=== PATIENT | female | born 1945 | race African-American/Black ===

== ENCOUNTER 2021-07-04 09:17 | Inpatient (IN) | payer MEDICARE ==
[~2021-07-04] VITALS: Ht 177.8 cm; Wt 79.9 kg
[~2021-07-04 09:17] MED LIST: ALLO300T PO; ASPI-630 PO; ATOR10TA60 PO; ENOX40DI SQ; FURO-68 PO; INDO50CA15 PO; LABE200T4 PO; LISI-130 PO; POTA10TA12 PO
--- NOTE | 2021-07-04 09:33 | PHYS DOC ---
Past Medical History Past Medical History: Asthma, CHF, Constipation, CVA, Diabetes-Type II, Heart Disease, Hypertension, Stroke Additional Past Medical Histor: gout Past Surgical History: Hysterectomy (w/ oophrectomy) Additional Past Surgical Histo: breast biopsy Smoking Status: Former Smoker Drug Use: None General Adult EDM: Chief Complaint: SYNCOPE HPI: HPI: Patient is a 76 year old female with past medical history of CHF, asthma, CAD, gout and prior CVA who presents with syncopal episode at home. Patient states she was walking from the bedroom to the bathroom when she lost consciousness. Her caught her, so she did not fall to the ground or suffer any head or neck trauma. Patient reports 2-week history of lightheadedness, decreased appetite, nausea and constipation. She also states she has had a dry cough for approximately 1 week. She denies chest pain, palpitations, shortness of breath, sputum production, abdominal pain, vomiting, passing flatulence, headache, paresthesias, focal weakness or any other pain. Per EMS, patient was hypotensive in route with improvement status post 550 mL LR administration. Patient reports she has had issues with chronic constipation and has had multiple colonoscopies without findings. Her most recent colonoscopy was in summer 2020. Patient is vaccinated against COVID-19, and received her last shot in September 2020. Review of Systems: Review of Systems: Constitutional: Denies fever, chills or generalized weakness Eyes: Denies change in visual acuity, visual field deficits or discharge HENT: Denies ear pain, nasal congestion or sore throat Respiratory: See HPI Cardiovascular: Denies chest pain, palpitations or edema GI: See HPI : Denies dysuria or hematuria Musculoskeletal: Denies back pain or joint pain Integument: Denies rash or other skin lesion Neurologic: See HPI Heart Score: C/O Chest Pain: No Allergies: Allergies: Allergies Coded Allergies Type Severity Reaction Last Updated Verified No Known Drug Allergies 06/01/21 No Physical Exam: PE: Constitutional: Well developed, well nourished, no acute distress, chronically ill-appearing. HENT: Normocephalic, atraumatic, bilateral external ears normal, nose normal. Eyes: PERRLA, EOMI, conjunctiva normal, no discharge. Neck: Normal range of motion, no step-off, no tenderness, supple, no stridor. Cardiovascular: Heart rate regular rhythm, no obvious murmur. Lungs & Thorax: Bilateral breath sounds expiratory wheezing, diminished breath sounds in bases. Abdomen: Bowel sounds hyperactive, soft, no tenderness, no masses, no pulsatile masses. Rectal: No external hemorrhoids or gross blood appreciated. Rectal tone intact. No palpable hemorrhoids, masses or fecal impaction. Skin: Warm, dry, no erythema, no rash. Extremities: No tenderness, no cyanosis, no clubbing, ROM intact, no edema. Neurologic: Alert and oriented x4, no focal deficits noted. Current Patient Data: Labs: Laboratory Tests Test 07/04/21 09:39 07/04/21 10:48 07/04/21 12:30 White Blood Count 4.4 x10^3/uL (4.0-11.0) Red Blood Count 4.72 x10^6/uL (3.50-5.40) Hemoglobin 13.7 g/dL (12.0-15.5) Hematocrit 42.9 % (36.0-47.0) Mean Corpuscular Volume 91 fL (79-100) Mean Corpuscular Hemoglobin 29 pg (25-35) Mean Corpuscular Hemoglobin Concent 32 g/dL (31-37) Red Cell Distribution Width 15.8 % (11.5-14.5) Platelet Count 191 x10^3/uL (140-400) Neutrophils (%) (Auto) 74 % (31-73) Lymphocytes (%) (Auto) 18 % (24-48) Monocytes (%) (Auto) 6 % (0-9) Eosinophils (%) (Auto) 1 % (0-3) Basophils (%) (Auto) 1 % (0-3) Neutrophils # (Auto) 3.3 x10^3/uL (1.8-7.7) Lymphocytes # (Auto) 0.8 x10^3/uL (1.0-4.8) Monocytes # (Auto) 0.3 x10^3/uL (0.0-1.1) Eosinophils # (Auto) 0.0 x10^3/uL (0.0-0.7) Basophils # (Auto) 0.0 x10^3/uL (0.0-0.2) Troponin I High Sensitivity 74 ng/L (4-50) Sodium Level 138 mmol/L (136-145) Potassium Level 4.0 mmol/L (3.5-5.1) Chloride Level 103 mmol/L (98-107) Carbon Dioxide Level 20 mmol/L (21-32) Anion Gap 15 (6-14) Blood Urea Nitrogen 25 mg/dL (7-20) Creatinine 2.0 mg/dL (0.6-1.0) Estimated GFR (Cockcroft-Gault) 29.4 BUN/Creatinine Ratio 13 (6-20) Glucose Level 142 mg/dL (70-99) Calcium Level 8.3 mg/dL (8.5-10.1) Magnesium Level 2.2 mg/dL (1.8-2.4) Total Bilirubin 0.7 mg/dL (0.2-1.0) Aspartate Amino Transf (AST/SGOT) 44 U/L (15-37) Alanine Aminotransferase (ALT/SGPT) 39 U/L (14-59) Alkaline Phosphatase 71 U/L (46-116) WL-Nef-M-Type Natriuretic Peptide 3745 pg/mL (0-449) Total Protein 6.8 g/dL (6.4-8.2) Albumin 3.0 g/dL (3.4-5.0) Albumin/Globulin Ratio 0.8 (1.0-1.7) Urine Collection Type Unknown Urine Color [place] Urine Clarity Turbid Urine pH 5.5 (<5.0-8.0) Urine Specific [place] 1.025 (1.000-1.030) Urine Protein 100 mg/dL (NEG-TRACE) Urine Glucose (UA) Negative mg/dL (NEG) Urine Ketones (Stick) Trace mg/dL (NEG) Urine Blood Negative (NEG) Urine Nitrite Negative (NEG) Urine Bilirubin Large (NEG) Urine Urobilinogen Dipstick 1.0 mg/dL (0.2 mg/dL) Urine Leukocyte Esterase Small (NEG) Urine RBC 0 /HPF (0-2) Urine WBC 11-20 /HPF (0-4) Urine Squamous Epithelial Cells Many /LPF Urine Bacteria Few /HPF (0-FEW) Urine Hyaline Casts Occasional /HPF Urine Mucus Slight /LPF Vital Signs: Vital Signs Date Time Temp Pulse Resp B/P (MAP) Pulse Ox O2 Delivery O2 Flow Rate FiO2 07/04/21 09:17 96.2 69 16 103/59 (74) 100 Room Air 96.2 EKG: EKG: EKG Interpreted by Dr. Gonsalez at 0933: Regular rate and rhythm 65 bpm with no ectopic beats. Left axis deviation, LVH, left bundle branch block, incomplete right bundle branch block. QT 504 ms/QTc 531 ms. No STEMI. Radiology/Procedures: Radiology/Procedures: PROCEDURE: CT HEAD WO CONTRAST EXAM: Head CT without contrast. HISTORY: Syncope. TECHNIQUE: Computed tomographic images of the head were obtained without contrast. *One or more of the following individualized dose reduction techniques were utilized for this examination: 1. Automated exposure control. 2. Adjustment of the mA and/or kV according to patient size. 3. Use of iterative reconstruction technique. COMPARISON: None. FINDINGS: There is no acute or subacute extra-axial or intraparenchymal hemorrhage. There is no mass effect or midline shift. There is no hydrocephalus. There are multiple scattered ill-defined areas of hypodensity throughout the cerebral white matter, most commonly due to chronic small vessel disease in patients of this age. There is a suspected small chronic infarct within the right basal ganglia. There is paranasal sinus mucosal thickening. The mastoid air cells are clear. There is no suspicious calvarial lesion. IMPRESSION: 1. No acute intracranial finding. Note is made that MRI is more sensitive for acute infarction. 2. Extensive bilateral cerebral white matter changes, most commonly due to chronic small vessel disease in patients of this age. There may also be a chronic infarct within the right basal ganglia. These findings can be better a ssessed with MRI. Electronically signed by: Erum Hackett MD (07/04/2021 11:31 AM) [facility] PROCEDURE: CHEST AP ONLY EXAM: Chest, single view. HISTORY: Syncope. COMPARISON: None. FINDINGS: A frontal view of the chest is obtained. There is left lower lobe predominant diffuse interstitial infiltrate. There is no consolidation, pleural effusion or pneumothorax. There is a prominent cardiac silhouette. IMPRESSION: Left lower lobe predominant diffuse interstitial infiltrate. This may be superimposed on chronic interstitial changes. Electronically signed by: Erum Hackett MD (07/04/2021 9:48 AM) [facility] PROCEDURE: CT ABDOMEN PELVIS WO CONTRAST EXAM: Abdomen and pelvis CT without intravenous contrast. HISTORY: Constipation. TECHNIQUE: Computed tomographic images of the abdomen and pelvis were obtained without contrast. Multiplanar reformatting was performed. *One or more of the following individualized dose reduction techniques were utilized for this examination: 1. Automated exposure control. 2. Adjustment of the mA and/or kV according to patient size. 3. Use of iterative reconstruction technique. COMPARISON: None. FINDINGS: Evaluation of the lower thorax demonstrates mild cardiomegaly. There is a small pericardial effusion. There is a small hiatal hernia. There is multifocal groundglass infiltrate throughout both lungs. There is emphysema and there are chronic interstitial changes. There is no consolidation or pleural effusion. There is a 5 mm hypodense lesion within the left hepatic lobe, too small to characterize. There is a lobulated cyst within the right hepatic lobe measuring 3.0 cm. There are few additional suspected tiny cyst within the right hepatic lobe. The gallbladder, pancreas, spleen and adrenal glands are unremarkable. There is a small simple cyst within the upper pole the right kidney. Follow-up is not routinely performed for simple cysts. There is no suspicious renal lesion on this noncontrast exam. There is no nephroureterolithiasis. There is no appendicitis. There is no bowel obstruction. There is distal colonic diverticulosis. There is no diverticulitis. The bladder is unremarkable. There is aortic and aortic branch vessel atherosclerosis. There is no aneurysm. There is no lymphadenopathy. There are degenerative changes throughout the spine, predominantly at L5-S1. IMPRESSION: 1. Colonic diverticulosis without diverticulitis. 2. Groundglass infiltrate throughout the bilateral lower thorax likely due to atypical pneumonia. 3. Multiple hypodense lesions within the liver, the largest of which demonstrate attenuation consistent with a cyst. In the absence of known malignancy, the additional lesions are also likely cysts. 4. Small simple cyst within the right kidney. Electronically signed by: Erum Hackett MD (07/04/2021 11:40 AM) [facility] Course & Med Decision Making: Course & Med Decision Making Pertinent Labs and Imaging studies reviewed. (See chart for details) 76 year old female presents with witnessed syncopal episode at home while walking from bedroom to her bathroom. Patient did not fall to the ground or experience head/neck trauma of any kind, as her caught her before she fell. Pressures soft en route, per EMS. She responded well to 1/2L LR bolus administered. Additional complaints of lightheadedness and constipation x2 weeks, cough x1 week. Workup will include labs, urinalysis, CXR, CT head/abd/pelv, EKG, swabs for COVID-19. Albuterol inhaler provided for diffuse wheezing. More IV fluids administered. Findings today include atypical pneumonia, elevated troponin and elevated BNP. Dr. Harris (hospitalist) contacted for admission, who gladly accepts. Included cardiology consult on bridge orders per Dr. Harris request. Dragon Disclaimer: Dragon Disclaimer: This electronic medical record was generated, in whole or in part, using a voice recognition dictation system. Departure Departure Impression: Primary Impression: Syncope Qualified Codes: R55 - Syncope and collapse Additional Impressions: Atypical pneumonia Elevated troponin level not due myocardial infarction Hx of severe congestive heart failure COVID-19 virus infection Disposition: ADMITTED INPATIENT Admitting Physician: MARCE (Steven) Condition: GUARDED Referrals: ERNESTO CHIN (PCP) RENITA WINTER Jul 04, 2021 09:33
[2021-07-04] MEDS ORDERED: IV NORMAL SALINE 1000ML BAG 1,000 ML IV ONE (09:45)
[2021-07-04 09:51] LABS: BASO % 1 % (0-3); EOS % 1 % (0-3); HEMATOCRIT 42.9 % (36.0-47.0); HEMOGLOBIN 13.7 g/dL (12.0-15.5); LYMPH # 0.8 x10^3/uL (1.0-4.8); LYMPH % 18 % (24-48); MEAN CORPUSCULAR HEMOGLOBIN 29 pg (25-35); MEAN CORPUSCULAR HGB CONC 32 g/dL (31-37); MEAN CORPUSCULAR VOLUME 91 fL (79-100); MONO # 0.3 x10^3/uL (0.0-1.1); MONO % 6 % (0-9); NEUT # 3.3 x10^3/uL (1.8-7.7); NEUT % 74 % (31-73); PLATELET COUNT 191 x10^3/uL (140-400); RED BLOOD COUNT 4.72 x10^6/uL (3.50-5.40); RED CELL DISTRIBUTION WIDTH 15.8 % (11.5-14.5); WHITE BLOOD COUNT 4.4 x10^3/uL (4.0-11.0)
--- NOTE | 2021-07-04 09:51 | RAD ---
EXAM: Chest, single view. HISTORY: Syncope. COMPARISON: None. FINDINGS: A frontal view of the chest is obtained. There is left lower lobe predominant diffuse inter stitial infiltrate. There is no consolidation, pleural effusion or pneumothorax. There is a prominent cardiac silhouette. IMPRESSION: Left lower lobe predominant diffuse interstitial infiltrate. This may be superimposed on chronic interstitial changes. Electronically signed by: Erum Hackett MD (07/04/2021 9:48 AM) [facility]
[2021-07-04] MEDS ORDERED: CONTRAST GIVEN. MC PRN (10:00)
[2021-07-04] MEDS ORDERED: IOHEXOL 300 MG/ML 100ML VIAL. IV ONE (10:00)
[2021-07-04] MEDS ORDERED: ALBUTEROL SULFATE 8GM INHALER. INH PRN (11:00)
[2021-07-04 11:13] LABS: CALCIUM 8.3 mg/dL (8.5-10.1); GFR 29.4
[2021-07-04 11:17] LABS: ALBUMIN/GLOBULIN RATIO 0.8 (1.0-1.7); MAGNESIUM 2.2 mg/dL (1.8-2.4); TOTAL BILIRUBIN 0.7 mg/dL (0.2-1.0); TOTAL PROTEIN 6.8 g/dL (6.4-8.2)
--- NOTE | 2021-07-04 11:34 | RAD ---
EXAM: Head CT without contrast. HISTORY: Syncope. TECHNIQUE: Computed tomographic images of the head were obtained without contrast. *One or more of the following individualized dose reduction techniques were utilized for this examina tion: 1. Automated exposure control. 2. Adjustment of the mA and/or kV according to patient size. 3. Use of iterative reconstruction technique. COMPARISON: None. FINDINGS: There is no acute or subacute extra-axial or intraparenchymal hemorrhage. There is no mass effect or midline shift. There is no hydrocephalus. There are multiple scattered ill-defined areas of hypodensity throughout the cerebral white matter, m ost commonly due to chronic small vessel disease in patients of this age. There is a suspected small chronic infarct within the right basal ganglia. There is paranasal sinus mucosal thickening. The mastoid air cells are clear. There is no suspicious calvarial lesion. IMPRESSION: 1. No acute intracranial finding. Note is made that MRI is more sensitive for acute infarction. 2. Extensive bilateral cerebral white matter changes, most commonly due to chronic small vessel disea se in patients of this age. There may also be a chronic infarct within the right basal ganglia. These findings can be better assessed with MRI. Electronically signed by: Erum Hackett MD (07/04/2021 11:31 AM) [facility]
--- NOTE | 2021-07-04 11:43 | RAD ---
EXAM: Abdomen and pelvis CT without intravenous contrast. HISTORY: Constipation. TECHNIQUE: Computed tomographic images of the abdomen and pelvis were obtained without contrast. Mult iplanar reformatting was performed. *One or more of the following individualized dose reduction techniques were utilized for this examina tion: 1. Automated exposure control. 2. Adjustment of the mA and/or kV according to patient size. 3. Use of iterative reconstruction technique. COMPARISON: None. FINDINGS: Evaluation of the lower thorax demonstrates mild cardiomegaly. There is a small pericardial effusion. There is a small hiatal hernia. There is multifocal groundglass infiltrate throughout both lungs. There is emphysema and there are chronic interstitial changes. There is no consolidation or p leural effusion. There is a 5 mm hypodense lesion within the left hepatic lobe, too small to characterize. There is a lobulated cyst within the right hepatic lobe measuring 3.0 cm. There are few additional suspected tin y cyst within the right hepatic lobe. The gallbladder, pancreas, spleen and adrenal glands are unrema rkable. There is a small simple cyst within the upper pole the right kidney. Follow-up is not routine ly performed for simple cysts. There is no suspicious renal lesion on this noncontrast exam. There is no nephroureterolithiasis. There is no appendicitis. There is no bowel obstruction. There is distal colonic diverticulosis. Ther e is no diverticulitis. The bladder is unremarkable. There is aortic and aortic branch vessel atheros clerosis. There is no aneurysm. There is no lymphadenopathy. There are degenerative changes throughou t the spine, predominantly at L5-S1. IMPRESSION: 1. Colonic diverticulosis without diverticulitis. 2. Groundglass infiltrate throughout the bilateral lower thorax likely due to atypical pneumonia. 3. Multiple hypodense lesions within the liver, the largest of which demonstrate attenuation consiste nt with a cyst. In the absence of known malignancy, the additional lesions are also likely cysts. 4. Small simple cyst within the right kidney. Electronically signed by: Erum Hackett MD (07/04/2021 11:40 AM) [facility]
[2021-07-04 12:39] LABS: BILIRUBIN,URINE LARGE (NEG); CLARITY,URINE TURBID; COLOR,URINE ORANGE; NITRITE,URINE NEGATIVE (NEG); PH,URINE 5.5 (<5.0-8.0); PROTEIN,URINE 100 mg/dL (NEG-TRACE)
[2021-07-04 12:44] LABS: HYALINE CASTS, URINE OCCASIONAL /HPF
[2021-07-04 12:45] LABS: BACTERIA,URINE FEW /HPF (0-FEW); RBC,URINE 0 /HPF (0-2)
--- NOTE | 2021-07-04 13:17 | PDOC1 ---
History and Physical Date of Service: DOS: DATE: 07/04/21 TIME: 13:03 Chief Complaint: Chief Complain: syncope History of Present Illness: HPI: 76-year-old female with past medical history of CHF seen on cardiac cath in May 2021, asthma, gout, history of CVA who comes in after a syncopal episode at home. Patient states that she was went to the bathroom and attempted to have a bowel movement. When she got up she had to grab onto her because she was about to fall. Denies any L loss of consciousness or head tr auma. Patient states that she is having a 1 week history of constipation and has been lightheaded and having decreased appetite. This is her chronic issue. She also endorses a cough for approximately 1 week. Denies chest pain, palpitations, shortness of breath, nausea or vomiting, dysuria or diarrhea. Patient is vaccinated for COVID-19. Upon arrival to the ED patient was hypo tensive and had 550 cc of LR and had improvement. Past Medical/Surgical History: PMH/PSH: Past medical history: Diabetes mellitus type 2, hypertension, gout, asthma Past surgical history: Hysterectomy in Allergies: Allergies: Coded Allergies: No Known Drug Allergies (Unverified , 06/01/21) Family History: Family History: Reviewed with no relevant findings in the chart Social History: Social History: Former smoker Current Medications: Current Medications Current Medications Sodium Chloride 1,000 ml @ 1,000 mls/hr 1X ONCE IV Last administered on 07/04/21at 10:09; Start 07/04/21 at 09:45; Stop 07/04/21 at 10:44; Status DC Iohexol (Omnipaque 300 Mg/ml) 75 ml 1X ONCE IV ; Start 07/04/21 at 10:00; Stop 07/04/21 at 10:01; Status DC Info (CONTRAST GIVEN -- Rx MONITORING) 1 each PRN DAILY PRN MC SEE COMMENTS; Start 07/04/21 at 10:00; Stop 07/06/21 at 09:59 Albuterol Sulfate (Ventolin Hfa) 1 puff PRN Q4HRS PRN INH SHORTNESS OF BREATH; Start 07/04/21 at 11:00 Active Scripts Active Lisinopril 40 Mg Tablet 40 Mg PO DAILY 30 Days Aspirin 81 Mg Tab.chew 1 Tab PO DAILY 30 Days Labetalol Hcl 200 Mg Tablet 1 Tab PO BID 30 Days Atorvastatin Calcium 10 Mg Tablet 10 Mg PO HS 30 Days Reported Lasix (Furosemide) 40 Mg Tablet 1 Tab PO DAILY 30 Days Klor-Con 10 (Potassium Chloride) 10 Meq Tablet.er 1 Tab PO DAILY 30 Days Indomethacin 50 Mg Capsule 50 Mg PO BIDAFTMEAL PRN PRN Allopurinol 300 Mg Tablet 300 Mg PO DAILY ROS: Review of Systems Review of System REVIEW OF SYSTEMS: GENERAL: Denies weakness SKIN: No bruising, hair changes or rashes. EYES: No blurred, double or loss of vision. NOSE AND THROAT: No history of nosebleeds, hoarseness or sore throat. HEART: No history of palpitations, chest pain or shortness of breath on exertion. LUNGS: Positive for cough GASTROINTESTINAL: Positive for constipation GENITOURINARY: No history of frequency, urgency, hesitancy or nocturia. NEUROLOGIC: Denies history of numbness, tingling, or tremor. PSYCHIATRIC: No history of panic, anxiety or depression. ENDOCRINE: No history of heat or cold intolerance, polyuria or polydipsia. EXTREMITIES: Denies joint pain, pain on walking or stiffness. Physical Exam: Vital Signs: Vital Signs Date Time Temp Pulse Resp B/P (MAP) Pulse Ox O2 Delivery O2 Flow Rate FiO2 07/04/21 09:17 96.2 69 16 103/59 (74) 100 Room Air 96.2 Physcial Exam: General: Well developed, well nourished, no acute distress, well appearing HEENT: Pupils equally round and reactive to light, EOMI, no discharge, normal conjunctiva Neck: Supple, no nuchal rigidity, no JVD, trachea midline, no tenderness Cardiac: RRR, no murmurs, no gallops, no rubs Chest/Lungs: CTAB, no wheeze, no rhonchi, no crackles Abdomen: soft, non-distended, no guarding, no peritoneal signs, non-tender Back: No tenderness Extremities: no edema, pulses intact, non-tender,capillary refill <3 sec bilateral upper and lower extremities, Neuro: Alert and oriented x 4, no focal deficits, normal speech Labs: Labs: Laboratory Tests Test 07/04/21 09:39 07/04/21 10:48 07/04/21 12:30 White Blood Count 4.4 x10^3/uL (4.0-11.0) Red Blood Count 4.72 x10^6/uL (3.50-5.40) Hemoglobin 13.7 g/dL (12.0-15.5) Hematocrit 42.9 % (36.0-47.0) Mean Corpuscular Volume 91 fL (79-100) Mean Corpuscular Hemoglobin 29 pg (25-35) Mean Corpuscular Hemoglobin Concent 32 g/dL (31-37) Red Cell Distribution Width 15.8 % (11.5-14.5) Platelet Count 191 x10^3/uL (140-400) Neutrophils (%) (Auto) 74 % (31-73) Lymphocytes (%) (Auto) 18 % (24-48) Monocytes (%) (Auto) 6 % (0-9) Eosinophils (%) (Auto) 1 % (0-3) Basophils (%) (Auto) 1 % (0-3) Neutrophils # (Auto) 3.3 x10^3/uL (1.8-7.7) Lymphocytes # (Auto) 0.8 x10^3/uL (1.0-4.8) Monocytes # (Auto) 0.3 x10^3/uL (0.0-1.1) Eosinophils # (Auto) 0.0 x10^3/uL (0.0-0.7) Basophils # (Auto) 0.0 x10^3/uL (0.0-0.2) Troponin I High Sensitivity 74 ng/L (4-50) Sodium Level 138 mmol/L (136-145) Potassium Level 4.0 mmol/L (3.5-5.1) Chloride Level 103 mmol/L (98-107) Carbon Dioxide Level 20 mmol/L (21-32) Anion Gap 15 (6-14) Blood Urea Nitrogen 25 mg/dL (7-20) Creatinine 2.0 mg/dL (0.6-1.0) Estimated GFR (Cockcroft-Gault) 29.4 BUN/Creatinine Ratio 13 (6-20) Glucose Level 142 mg/dL (70-99) Calcium Level 8.3 mg/dL (8.5-10.1) Magnesium Level 2.2 mg/dL (1.8-2.4) Total Bilirubin 0.7 mg/dL (0.2-1.0) Aspartate Amino Transf (AST/SGOT) 44 U/L (15-37) Alanine Aminotransferase (ALT/SGPT) 39 U/L (14-59) Alkaline Phosphatase 71 U/L (46-116) UU-Djb-X-Type Natriuretic Peptide 3745 pg/mL (0-449) Total Protein 6.8 g/dL (6.4-8.2) Albumin 3.0 g/dL (3.4-5.0) Albumin/Globulin Ratio 0.8 (1.0-1.7) Urine Collection Type Unknown Urine Color [place] Urine Clarity Turbid Urine pH 5.5 (<5.0-8.0) Urine Specific [place] 1.025 (1.000-1.030) Urine Protein 100 mg/dL (NEG-TRACE) Urine Glucose (UA) Negative mg/dL (NEG) Urine Ketones (Stick) Trace mg/dL (NEG) Urine Blood Negative (NEG) Urine Nitrite Negative (NEG) Urine Bilirubin Large (NEG) Urine Urobilinogen Dipstick 1.0 mg/dL (0.2 mg/dL) Urine Leukocyte Esterase Small (NEG) Urine RBC 0 /HPF (0-2) Urine WBC 11-20 /HPF (0-4) Urine Squamous Epithelial Cells Many /LPF Urine Bacteria Few /HPF (0-FEW) Urine Hyaline Casts Occasional /HPF Urine Mucus Slight /LPF Laboratory Tests Test 07/04/21 09:39 07/04/21 10:48 07/04/21 12:30 White Blood Count 4.4 x10^3/uL (4.0-11.0) Red Blood Count 4.72 x10^6/uL (3.50-5.40) Hemoglobin 13.7 g/dL (12.0-15.5) Hematocrit 42.9 % (36.0-47.0) Mean Corpuscular Volume 91 fL (79-100) Mean Corpuscular Hemoglobin 29 pg (25-35) Mean Corpuscular Hemoglobin Concent 32 g/dL (31-37) Red Cell Distribution Width 15.8 % (11.5-14.5) Platelet Count 191 x10^3/uL (140-400) Neutrophils (%) (Auto) 74 % (31-73) Lymphocytes (%) (Auto) 18 % (24-48) Monocytes (%) (Auto) 6 % (0-9) Eosinophils (%) (Auto) 1 % (0-3) Basophils (%) (Auto) 1 % (0-3) Neutrophils # (Auto) 3.3 x10^3/uL (1.8-7.7) Lymphocytes # (Auto) 0.8 x10^3/uL (1.0-4.8) Monocytes # (Auto) 0.3 x10^3/uL (0.0-1.1) Eosinophils # (Auto) 0.0 x10^3/uL (0.0-0.7) Basophils # (Auto) 0.0 x10^3/uL (0.0-0.2) Troponin I High Sensitivity 74 ng/L (4-50) Sodium Level 138 mmol/L (136-145) Potassium Level 4.0 mmol/L (3.5-5.1) Chloride Level 103 mmol/L (98-107) Carbon Dioxide Level 20 mmol/L (21-32) Anion Gap 15 (6-14) Blood Urea Nitrogen 25 mg/dL (7-20) Creatinine 2.0 mg/dL (0.6-1.0) Estimated GFR (Cockcroft-Gault) 29.4 BUN/Creatinine Ratio 13 (6-20) Glucose Level 142 mg/dL (70-99) Calcium Level 8.3 mg/dL (8.5-10.1) Magnesium Level 2.2 mg/dL (1.8-2.4) Total Bilirubin 0.7 mg/dL (0.2-1.0) Aspartate Amino Transf (AST/SGOT) 44 U/L (15-37) Alanine Aminotransferase (ALT/SGPT) 39 U/L (14-59) Alkaline Phosphatase 71 U/L (46-116) BK-Vnl-T-Type Natriuretic Peptide 3745 pg/mL (0-449) Total Protein 6.8 g/dL (6.4-8.2) Albumin 3.0 g/dL (3.4-5.0) Albumin/Globulin Ratio 0.8 (1.0-1.7) Urine Collection Type Unknown Urine Color [place] Urine Clarity Turbid Urine pH 5.5 (<5.0-8.0) Urine Specific Dickinson 1.025 (1.000-1.030) Urine Protein 100 mg/dL (NEG-TRACE) Urine Glucose (UA) Negative mg/dL (NEG) Urine Ketones (Stick) Trace mg/dL (NEG) Urine Blood Negative (NEG) Urine Nitrite Negative (NEG) Urine Bilirubin Large (NEG) Urine Urobilinogen Dipstick 1.0 mg/dL (0.2 mg/dL) Urine Leukocyte Esterase Small (NEG) Urine RBC 0 /HPF (0-2) Urine WBC 11-20 /HPF (0-4) Urine Squamous Epithelial Cells Many /LPF Urine Bacteria Few /HPF (0-FEW) Urine Hyaline Casts Occasional /HPF Urine Mucus Slight /LPF Images: Images PROCEDURE: CHEST AP ONLY IMPRESSION: Left lower lobe predominant diffuse interstitial infiltrate. This may be superimposed on chronic interstitial changes. PROCEDURE: CT HEAD WO CONTRAST EXAM: Head CT without contrast. HISTORY: Syncope. TECHNIQUE: Computed tomographic images of the head were obtained without contrast. *One or more of the following individualized dose reduction techniques were utilized for this examination: 1. Automated exposure control. 2. Adjustment of the mA and/or kV according to patient size. 3. Use of iterative reconstruction technique. COMPARISON: None. FINDINGS: There is no acute or subacute extra-axial or intraparenchymal hemorrhage. There is no mass effect or midline shift. There is no hydrocephalus. There are multiple scattered ill-defined areas of hypodensity throughout the cerebral white matter, most commonly due to chronic small vessel disease in patients of this age. There is a suspected small chronic infarct within the right basal ganglia. There is paranasal sinus mucosal thickening. The mastoid air cells are clear. There is no suspicious calvarial lesion. IMPRESSION: 1. No acute intracranial finding. Note is made that MRI is more sensitive for acute infarction. 2. Extensive bilateral cerebral white matter changes, most commonly due to chronic small vessel disease in patients of this age. There may also be a chronic infarct within the right basal ganglia. These findings can be better assessed with MRI. PROCEDURE: CT ABDOMEN PELVIS WO CONTRAST EXAM: Abdomen and pelvis CT without intravenous contrast. HISTORY: Constipation. TECHNIQUE: Computed tomographic images of the abdomen and pelvis were obtained without contrast. Multiplanar reformatting was performed. *One or more of the following individualized dose reduction techniques were utilized for this examination: 1. Automated exposure control. 2. Adjustment of the mA and/or kV according to patient size. 3. Use of iterative reconstruction technique. COMPARISON: None. FINDINGS: Evaluation of the lower thorax demonstrates mild cardiomegaly. There is a small pericardial effusion. There is a small hiatal hernia. There is multifocal groundglass infiltrate throughout both lungs. There is emphysema and there are chronic interstitial changes. There is no consolidation or pleural effusion. There is a 5 mm hypodense lesion within the left hepatic lobe, too small to characterize. There is a lobulated cyst within the right hepatic lobe measuring 3.0 cm. There are few additional suspected tiny cyst within the right hepatic lobe. The gallbladder, pancreas, spleen and adrenal glands are unremarkable. There is a small simple cyst within the upper pole the right kidney. Follow-up is not routinely performed for simple cysts. There is no suspicious renal lesion on this noncontrast exam. There is no nephroureterolithiasis. There is no appendicitis. There is no bowel obstruction. There is distal colonic diverticulosis. There is no diverticulitis. The bladder is unremarkable. There is aortic and aortic branch vessel atherosclerosis. There is no aneurysm. There is no lymphadenopathy. There are degenerative changes throughout the spine, predominantly at L5-S1. IMPRESSION: 1. Colonic diverticulosis without diverticulitis. 2. Groundglass infiltrate throughout the bilateral lower thorax likely due to atypical pneumonia. 3. Multiple hypodense lesions within the liver, the largest of which demonstrate attenuation consistent with a cyst. In the absence of known malignancy, the additional lesions are also likely cysts. 4. Small simple cyst within the right kidney. Assessment/Plan Assessment/Plan Vasovagal Syncope, rule out cardiogenic Atypical bilateral pneumonia, possible gram-negative organisms COVID-19 pneumonia Multiple hypodense lesions within the liver, the largest of which demonstrate attenuation consistent with a cyst. In the absence of known malignancy, the additional lesions are also likely cysts. ROMEL due to vasomotor nephropathy Elevated BNP likely due to volume overload History of CHF seen on cardiac cath, estimated LVEF of 15% History of hypertension History of diabetes mellitus type 2 History of gout History of asthma Admit to hospitalist service for further management We will hold off on Covid protocol treatments as patient is not needing any oxygen at this time. Empiric IV antibiotics Pending Legionella antigen urine, pro calcitonin and MRSA screen Orthostatic vital signs Bowel regimen Continue judicious IV fluids Strict I/os Monitor urine output R ISS and Accu-Cheks Cardiology consult Pending TTE Continue telemetry monitoring Fall precautions Hold all centrally acting medications Lovenox for DVT prophylaxis Protonix GI prophylaxis ADA diet CODE STATUS full Discussed with RN and SW Disposition inpatient management as above DPOA: Justifications for Admission Other Justification BURKE MONAHAN MD Jul 04, 2021 13:17
[2021-07-04 13:40] LABS: FECAL OB PT NEGATIVE (NEG)
[2021-07-04] MEDS ORDERED: PROCHLORPERAZINE 10 MG/2 ML VIAL. IV PRN (16:00)
[2021-07-04] MEDS ORDERED: ONDANSETRON PF 4 MG/2 ML VIAL. IVP PRN (16:00)
[2021-07-04] MEDS ORDERED: LORazepam 0.5 MG TABLET PO PRN (16:00)
[2021-07-04] MEDS ORDERED: diphenhydrAMINE HCL 25 MG CAPSULE PO PRN ×2 (16:00)
[2021-07-04] MEDS ORDERED: DOCUSATE SODIUM 100 MG CAPSULE. PO PRN (16:00)
[2021-07-04] MEDS ORDERED: ZOLPIDEM 5 MG TABLET. PO PRN (16:00)
[2021-07-04] MEDS ORDERED: SENNOSIDES 8.6 MG TABLET PO PRN (16:00)
[2021-07-04] MEDS ORDERED: diphenhydrAMINE 50 MG/ML VIAL IVP PRN (16:00)
[2021-07-04] MEDS ORDERED: DEXTROSE 50% 25 GM / 50ML DISP.SYRIN. IV PRN (16:00)
[2021-07-04] MEDS ORDERED: ACETAMINOPHEN 325 MG TABLET. PO PRN (16:00)
[2021-07-04] MEDS: PANTOPRAZOLE 40 MG TABLET.DR. PO SCH (16:28)
[2021-07-04] MEDS: cefTRIAXone IV Push 1 GM VIAL. IVP SCH (16:28)
[2021-07-04] MEDS: IV NORMAL SALINE 1000ML BAG 1,000 ML IV SCH (16:36)
[2021-07-04] MEDS: INSULIN LISPRO 300 UNITS/3 ML VIAL. SQ SCH (17:00)
--- NOTE | 2021-07-04 18:05 | CONS ---
DATE OF CONSULTATION: 07/04/2021 REASON FOR CONSULTATION: Elevated troponin and syncope. HISTORY OF PRESENT ILLNESS: The patient is a pleasant 76-year-old woman with past medical history of nonischemic cardiomyopathy, who presents to the hospital in the setting of syncope. She apparently was in her usual state of health and was going to the bathroom when she was attempting to have a bowel movement. When she got up, she had to grab her because she was about to fall. She did not have any true syncopal episode. She denies any specific chest pain, dyspnea, orthopnea or PND. No hospitalizations or ER visits in the last 2 weeks. She was given fluids in the ER due to hypotension with a systolic blood pressure of 100/50 upon initial arrival. PAST MEDICAL HISTORY: 1. Nonischemic cardiomyopathy with a cardiac catheterization in 05/2021 revealing no significant pathology. 2. Type 2 diabetes. 3. Hypertension. 4. Asthma. 5. History of cerebrovascular accident. ALLERGIES: No known drug allergies. FAMILY HISTORY: Noncontributory. SOCIAL HISTORY: The patient is a former smoker. Denies any current alcohol, tobacco or illicit drug use. CURRENT CARDIOVASCULAR MEDICATIONS: Unknown. REVIEW OF SYSTEMS: Negative for 10 out of 14 systems reviewed, unless otherwise mentioned above in HPI. PHYSICAL EXAMINATION: VITAL SIGNS: She is afebrile, 80, 25, 130/70, 93% on room air. GENERAL: She is alert and oriented, no acute distress. HEAD AND NECK: Unremarkable. CARDIAC: Regular rate and rhythm without murmurs, rubs or gallops. LUNGS: Clear to auscultation bilaterally. ABDOMEN: Soft, nontender, nondistended. EXTREMITIES: No clubbing, cyanosis or edema. NEUROLOGIC: No focal deficits. MUSCULOSKELETAL: No trauma. DIAGNOSTIC STUDIES: Hemoglobin 13.7, platelet count 191. Creatinine elevated at 2.0. ALT, AST within normal limits. Troponin mildly elevated at 74. BNP 3745. EKG is unremarkable. IMAGING: Including abdomen and pelvis CT and head CT did not reveal any significant acute pathology. Chest x-ray demonstrates left lower lobe predominant diffuse interstitial infiltrates suggestive of atypical pneumonia. COVID screen is positive. IMPRESSION: 1. Near syncope in the setting of coronavirus infection with pneumonia on chest x-ray. 2. History of nonischemic cardiomyopathy with recent cardiac catheterization noted above. 3. Hypertension. 4. Dyslipidemia. 5. Cerebrovascular accident. RECOMMENDATIONS: At this present time, continue treatment for coronavirus. Given her history of nonischemic cardiomyopathy, we will reconcile her medications and likely initiate her on goal-directed medical therapy if tolerated depending on her blood pressure. Supportive care for now. We will follow along closely. BRODERICK DR: Riley TID: [id number]
[2021-07-04] MEDS: ASCORBIC ACID 1,000 MG TABLET PO SCH (20:48)
[2021-07-04] MEDS: DOXYCYCLINE HYCLATE 100 MG TABLET PO SCH (20:48)
[2021-07-04] MEDS: ENOXAPARIN 40 MG/0.4 ML SYRINGE. SQ SCH (20:49)
--- NOTE | 2021-07-04 21:32 | EKG ---
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
[2021-07-04 21:46] VITALS: BP 147/70
[2021-07-05] VITALS (8 sets, daily range): BP systolic 132–158; BP diastolic 73–103
[2021-07-05] MEDS: INSULIN LISPRO 300 UNITS/3 ML VIAL. SQ SCH ×3 (08:00→17:00)
[2021-07-05] MEDS: DOXYCYCLINE HYCLATE 100 MG TABLET PO SCH ×2 (09:01→20:09)
[2021-07-05] MEDS: PANTOPRAZOLE 40 MG TABLET.DR. PO SCH (09:01)
[2021-07-05] MEDS: ZINC SULFATE 220 MG CAPSULE. PO SCH (09:01)
[2021-07-05] MEDS: THIAMINE 100 MG TABLET. PO SCH (09:01)
[2021-07-05] MEDS: ASCORBIC ACID 1,000 MG TABLET PO SCH ×3 (09:01→20:09)
[2021-07-05 09:06] LABS: BASO % 1 % (0-3); EOS % 0 % (0-3); GFR 65.4; HEMATOCRIT 41.2 % (36.0-47.0); HEMOGLOBIN 13.2 g/dL (12.0-15.5); LYMPH # 0.9 x10^3/uL (1.0-4.8); LYMPH % 22 % (24-48); MAGNESIUM 1.9 mg/dL (1.8-2.4); MEAN CORPUSCULAR HEMOGLOBIN 29 pg (25-35); MEAN CORPUSCULAR HGB CONC 32 g/dL (31-37); MEAN CORPUSCULAR VOLUME 90 fL (79-100); MONO # 0.2 x10^3/uL (0.0-1.1); MONO % 6 % (0-9); NEUT # 2.7 x10^3/uL (1.8-7.7); NEUT % 71 % (31-73); PHOSPHORUS 2.8 mg/dL (2.6-4.7); PLATELET COUNT 194 x10^3/uL (140-400); RED BLOOD COUNT 4.59 x10^6/uL (3.50-5.40); RED CELL DISTRIBUTION WIDTH 15.7 % (11.5-14.5); WHITE BLOOD COUNT 3.8 x10^3/uL (4.0-11.0)
[2021-07-05] MEDS: IV NORMAL SALINE 1000ML BAG 1,000 ML IV SCH (12:00)
[2021-07-05] MEDS ORDERED: POTASSIUM CHLORIDE 20 MEQ TABLET.ER. PO ONE (14:00)
--- NOTE | 2021-07-05 14:49 | PDOC ---
[facility] [facility] PROGRESS NOTE Date of Service DOS: DATE: 07/05/21 TIME: 14:48 Chief Complaint Chief Complaint Vasovagal Syncope, rule out cardiogenic Atypical bilateral pneumonia, possible gram-negative organisms COVID-19 pneumonia Multiple hypodense lesions within the liver, the largest of which demonstrate attenuation consistent with a cyst. In the absence of known malignancy, the additional lesions are also likely cysts. ROMEL due to vasomotor nephropathy Elevated BNP likely due to volume overload History of CHF seen on cardiac cath, estimated LVEF of 15% History of hypertension History of diabetes mellitus type 2 History of gout History of asthma Admit to hospitalist service for further management We will hold off on Covid protocol treatments as patient is not needing any oxygen at this time. Empiric IV antibiotics Pending Legionella antigen urine, pro calcitonin and MRSA screen Orthostatic vital signs Bowel regimen Continue judicious IV fluids Strict I/os Monitor urine output R ISS and Accu-Cheks Cardiology consult Pending TTE Continue telemetry monitoring Fall precautions Hold all centrally acting medications Lovenox for DVT prophylaxis Protonix GI prophylaxis ADA diet CODE STATUS full Discussed with RN and SW Disposition inpatient management as above DPOA: History of Present Illness History of Present Illness 07/05 Patient evaluated examined at bedside. Resting in bed pleasant. Was eating lunch. Continue pneumonia treatment. Cards consult for syncope. PT OT. Vitals/I&O Vitals/I&O: Vital Signs Date Time Temp Pulse Resp B/P (MAP) Pulse Ox O2 Delivery O2 Flow Rate FiO2 07/05/21 11:14 93 24 139/79 (99) Room Air 07/05/21 01:46 96 07/04/21 09:17 96.2 96.2 I & O 07/04/21 07/04/21 07/05/21 15:00 23:00 07:00 Intake Total 1000 ml Balance 1000 ml Physical Exam General: Alert, Oriented X3, Cooperative Heart: Regular rate, Normal S1, Normal S2 Lungs: Other (Decreased throughout) Abdomen: Normal bowel sounds, Soft, No tenderness Extremities: Normal pulses, Other (Lower extremity edema) Skin: No significant lesion Labs Labs: Laboratory Tests Test 07/04/21 17:02 07/05/21 08:45 07/05/21 08:52 07/05/21 11:33 Glucose (Fingerstick) 96 mg/dL (70-99) 109 mg/dL (70-99) 117 mg/dL (70-99) White Blood Count 3.8 x10^3/uL (4.0-11.0) Red Blood Count 4.59 x10^6/uL (3.50-5.40) Hemoglobin 13.2 g/dL (12.0-15.5) Hematocrit 41.2 % (36.0-47.0) Mean Corpuscular Volume 90 fL (79-100) Mean Corpuscular Hemoglobin 29 pg (25-35) Mean Corpuscular Hemoglobin Concent 32 g/dL (31-37) Red Cell Distribution Width 15.7 % (11.5-14.5) Platelet Count 194 x10^3/uL (140-400) Neutrophils (%) (Auto) 71 % (31-73) Lymphocytes (%) (Auto) 22 % (24-48) Monocytes (%) (Auto) 6 % (0-9) Eosinophils (%) (Auto) 0 % (0-3) Basophils (%) (Auto) 1 % (0-3) Neutrophils # (Auto) 2.7 x10^3/uL (1.8-7.7) Lymphocytes # (Auto) 0.9 x10^3/uL (1.0-4.8) Monocytes # (Auto) 0.2 x10^3/uL (0.0-1.1) Eosinophils # (Auto) 0.0 x10^3/uL (0.0-0.7) Basophils # (Auto) 0.0 x10^3/uL (0.0-0.2) Sodium Level 135 mmol/L (136-145) Potassium Level 3.0 mmol/L (3.5-5.1) Chloride Level 103 mmol/L (98-107) Carbon Dioxide Level 20 mmol/L (21-32) Anion Gap 12 (6-14) Blood Urea Nitrogen 17 mg/dL (7-20) Creatinine 1.0 mg/dL (0.6-1.0) Estimated GFR (Cockcroft-Gault) 65.4 Glucose Level 113 mg/dL (70-99) Calcium Level 8.0 mg/dL (8.5-10.1) Phosphorus Level 2.8 mg/dL (2.6-4.7) Magnesium Level 1.9 mg/dL (1.8-2.4) Test 07/05/21 12:31 Glucose (Fingerstick) 116 mg/dL (70-99) Assessment and Plan Assessmemt and Plan Problems Medical Problems: (1) Atypical pneumonia Status: Acute (2) COVID-19 virus infection Status: Acute (3) Elevated troponin level not due myocardial infarction Status: Acute (4) Hx of severe congestive heart failure Status: Acute (5) Syncope Status: Acute Comment Review of Relevant I have reviewed the following items marissa (where applicable) has been applied. Medications: Current Medications Medications (Trade) Dose Ordered Sig/Michael Route PRN Reason Start Time Stop Time Status Last Admin Dose Admin Sodium Chloride 1,000 ml @ 50 mls/hr Q20H IV 07/04/21 16:00 07/05/21 12:00 Enoxaparin Sodium (Lovenox 40mg Syringe) 40 mg Q24H SQ 07/04/21 21:00 07/04/21 20:49 Pantoprazole Sodium (Protonix) 40 mg DAILYAC PO 07/04/21 16:30 07/05/21 09:01 Ceftriaxone Sodium (Rocephin) 1 gm Q24H IVP 07/04/21 16:00 07/04/21 16:28 Doxycycline Hyclate (Vibra-Tab) 100 mg BID PO 07/04/21 21:00 07/05/21 09:01 Ascorbic Acid (Vitamin C) 3,000 mg TID PO 07/04/21 21:00 07/05/21 09:01 Thiamine Mononitrate (Vitamin B-1) 300 mg DAILY PO 07/05/21 09:00 07/05/21 09:01 Zinc Sulfate (Orazinc) 220 mg DAILY PO 07/05/21 09:00 07/05/21 09:01 Justifications for Admission Other Justification Syncope VALDEMAR HURD MD Jul 05, 2021 14:49
[2021-07-05] MEDS: cefTRIAXone IV Push 1 GM VIAL. IVP SCH (18:13)
[2021-07-05] MEDS: LACTOBACILLUS RHAMNOSUS GG 1 CAPSULE. PO SCH (20:09)
[2021-07-05] MEDS: ENOXAPARIN 40 MG/0.4 ML SYRINGE. SQ SCH (20:10)
[2021-07-06 02:41] VITALS: BP 158/80
[2021-07-06 06:47] LABS: BASO % 1 % (0-3); EOS # 0.1 x10^3/uL (0.0-0.7); EOS % 2 % (0-3); HEMATOCRIT 40.4 % (36.0-47.0); HEMOGLOBIN 12.9 g/dL (12.0-15.5); LYMPH # 1.2 x10^3/uL (1.0-4.8); LYMPH % 43 % (24-48); MEAN CORPUSCULAR HEMOGLOBIN 29 pg (25-35); MEAN CORPUSCULAR HGB CONC 32 g/dL (31-37); MEAN CORPUSCULAR VOLUME 90 fL (79-100); MONO # 0.3 x10^3/uL (0.0-1.1); MONO % 10 % (0-9); NEUT # 1.2 x10^3/uL (1.8-7.7); NEUT % 45 % (31-73); PLATELET COUNT 209 x10^3/uL (140-400); RED BLOOD COUNT 4.49 x10^6/uL (3.50-5.40); RED CELL DISTRIBUTION WIDTH 15.9 % (11.5-14.5); WHITE BLOOD COUNT 2.7 x10^3/uL (4.0-11.0)
[2021-07-06 06:54] LABS: CALCIUM 8.1 mg/dL (8.5-10.1); CREATININE 0.8 mg/dL (0.6-1.0); GFR 84.6; MAGNESIUM 1.9 mg/dL (1.8-2.4); POTASSIUM 3.6 mmol/L (3.5-5.1)
[2021-07-06 07:00] VITALS: BP 158/91
[2021-07-06] MEDS: IV NORMAL SALINE 1000ML BAG 1,000 ML IV SCH (08:00)
[2021-07-06] MEDS: INSULIN LISPRO 300 UNITS/3 ML VIAL. SQ SCH ×3 (08:00→17:00)
[2021-07-06] MEDS: THIAMINE 100 MG TABLET. PO SCH (09:17)
[2021-07-06] MEDS: ASCORBIC ACID 1,000 MG TABLET PO SCH ×3 (09:17→21:40)
[2021-07-06] MEDS: PANTOPRAZOLE 40 MG TABLET.DR. PO SCH (09:17)
[2021-07-06] MEDS: ZINC SULFATE 220 MG CAPSULE. PO SCH (09:17)
[2021-07-06] MEDS: DOXYCYCLINE HYCLATE 100 MG TABLET PO SCH ×2 (09:17→21:39)
[2021-07-06] MEDS: LACTOBACILLUS RHAMNOSUS GG 1 CAPSULE. PO SCH ×2 (09:17→21:39)
--- NOTE | 2021-07-06 10:37 | PDOC ---
BEATRIS GRIJALVA POLICE SERVICE TECHNICIAN 07/06/21 1037: CARDIO Progress Notes Date and Time Date of Service 07/06/21 Time of Evaluation 1030 Subjective Subjective: No Chest Pain, No shortness of breath, No Palpitations, No Dizziness Vitals Vitals Vital Signs Date Time Temp Pulse Resp B/P (MAP) Pulse Ox O2 Delivery O2 Flow Rate FiO2 07/06/21 07:00 97.9 91 18 158/91 (113) 91 Room Air 97.9 Weight Weight [ ] Laboratory Labs Laboratory Tests Test 07/05/21 11:33 07/05/21 12:31 07/05/21 18:08 07/06/21 05:25 Glucose (Fingerstick) 117 mg/dL (70-99) 116 mg/dL (70-99) 93 mg/dL (70-99) White Blood Count 2.7 x10^3/uL (4.0-11.0) Red Blood Count 4.49 x10^6/uL (3.50-5.40) Hemoglobin 12.9 g/dL (12.0-15.5) Hematocrit 40.4 % (36.0-47.0) Mean Corpuscular Volume 90 fL (79-100) Mean Corpuscular Hemoglobin 29 pg (25-35) Mean Corpuscular Hemoglobin Concent 32 g/dL (31-37) Red Cell Distribution Width 15.9 % (11.5-14.5) Platelet Count 209 x10^3/uL (140-400) Neutrophils (%) (Auto) 45 % (31-73) Lymphocytes (%) (Auto) 43 % (24-48) Monocytes (%) (Auto) 10 % (0-9) Eosinophils (%) (Auto) 2 % (0-3) Basophils (%) (Auto) 1 % (0-3) Neutrophils # (Auto) 1.2 x10^3/uL (1.8-7.7) Lymphocytes # (Auto) 1.2 x10^3/uL (1.0-4.8) Monocytes # (Auto) 0.3 x10^3/uL (0.0-1.1) Eosinophils # (Auto) 0.1 x10^3/uL (0.0-0.7) Basophils # (Auto) 0.0 x10^3/uL (0.0-0.2) Sodium Level 140 mmol/L (136-145) Potassium Level 3.6 mmol/L (3.5-5.1) Chloride Level 107 mmol/L (98-107) Carbon Dioxide Level 18 mmol/L (21-32) Anion Gap 15 (6-14) Blood Urea Nitrogen 15 mg/dL (7-20) Creatinine 0.8 mg/dL (0.6-1.0) Estimated GFR (Cockcroft-Gault) 84.6 Glucose Level 74 mg/dL (70-99) Calcium Level 8.1 mg/dL (8.5-10.1) Magnesium Level 1.9 mg/dL (1.8-2.4) Test 07/06/21 07:21 Glucose (Fingerstick) 86 mg/dL (70-99) Microbiology Micro Microbiology 07/04/21 Urine Culture - Final, Complete Physical Exam HEENT: Neck Supple W Full Motion Chest: Symmetric LUNGS: Clear to Auscultation Heart: RRR (LBBB) Abdomen: Soft N/T Extremities: No Edema Neurology: alert, oriented, follow commands Assessment Assessment 1. Syncope; most probably vasovagal in the setting of acute COVID infection, ROMEL. CT head without acute findings. No acute events on telemetry 2. COVID PNA; on RA 3. Leukopenia 4. NICM; recent LHC without obstructive coronary disease 5. Chronic systolic CHF; LVEF 15% per cath 6. ROMEL; improved s/p IVFs 7. Hypertension; mildly elevated 8. Hyperlipidemia. 9. Diabetes, II 10. H/o CVA 11. Chronic LBBB Recommendation Resume lisinopril Will convert labetalol to Coreg given severe CMP Add Aldactone Resume Lasix upon discharge Ongoing pulmonary optimization, treatment of COVID Consider for LifeVest Supportive care Justicifation of Admission Dx: Justifications for Admission: Justification of Admission Dx: Yes [place]: Acute NSTEMI NELSON ETIENNE MD 07/07/21 0548: CARDIO Progress Notes Assessment Assessment Agree with DRUG ABUSE PROGRAM COORDINATOR's assessment and plan. Syncope most prob vasovagal Chr systolic HF well compensated Agree with adding spironolactone to optimize therapy Continue current treatment for covid PNA BEATRIS GRIJALVA APRN Jul 06, 2021 10:37 NELSON ETIENNE MD Jul 07, 2021 05:48
[2021-07-06 11:00] VITALS: BP 169/87
--- NOTE | 2021-07-06 12:31 | PDOC ---
[facility] PROGRESS NOTE Date of Service DOS: DATE: 07/06/21 TIME: 12:29 Chief Complaint Chief Complaint Vasovagal Syncope, rule out cardiogenic Atypical bilateral pneumonia, possible gram-negative organisms COVID-19 pneumonia Multiple hypodense lesions within the liver, the largest of which demonstrate attenuation consistent with a cyst. In the absence of known malignancy, the additional lesions are also likely cysts. ROMEL due to vasomotor nephropathy Elevated BNP likely due to volume overload History of CHF seen on cardiac cath, estimated LVEF of 15% History of hypertension History of diabetes mellitus type 2 History of gout History of asthma Admit to hospitalist service for further management We will hold off on Covid protocol treatments as patient is not needing any oxygen at this time. Empiric IV antibiotics Pending Legionella antigen urine, pro calcitonin and MRSA screen Orthostatic vital signs Bowel regimen Continue judicious IV fluids Strict I/os Monitor urine output R ISS and Accu-Cheks Cardiology consult Pending TTE Continue telemetry monitoring Fall precautions Hold all centrally acting medications Lovenox for DVT prophylaxis Protonix GI prophylaxis ADA diet CODE STATUS full Discussed with RN and SW Disposition inpatient management as above DPOA: History of Present Illness History of Present Illness 07/06/2021 No acute events overnight. Patient seen examined bedside. Pending cardiology evaluation for medical management of her CHF medications. Anticipate discharge in the next 24 to 48 hours. Patient's chart, labs, images were reviewed and discussed with RN 07/05 Patient evaluated examined at bedside. Resting in bed pleasant. Was eating lunch. Continue pneumonia treatment. Cards consult for syncope. PT OT. Vitals/I&O Vitals/I&O: Vital Signs Date Time Temp Pulse Resp B/P (MAP) Pulse Ox O2 Delivery O2 Flow Rate FiO2 07/06/21 11:00 97.9 89 18 169/87 (114) 93 Room Air 97.9 Physical Exam General: Alert, Oriented X3, Cooperative Heart: Regular rate, Normal S1, Normal S2 Lungs: Other (Decreased throughout) Abdomen: Normal bowel sounds, Soft, No tenderness Extremities: Normal pulses, Other (Lower extremity edema) Skin: No significant lesion Labs Labs: Laboratory Tests Test 07/05/21 12:31 07/05/21 18:08 07/06/21 05:25 07/06/21 07:21 Glucose (Fingerstick) 116 mg/dL (70-99) 93 mg/dL (70-99) 86 mg/dL (70-99) White Blood Count 2.7 x10^3/uL (4.0-11.0) Red Blood Count 4.49 x10^6/uL (3.50-5.40) Hemoglobin 12.9 g/dL (12.0-15.5) Hematocrit 40.4 % (36.0-47.0) Mean Corpuscular Volume 90 fL (79-100) Mean Corpuscular Hemoglobin 29 pg (25-35) Mean Corpuscular Hemoglobin Concent 32 g/dL (31-37) Red Cell Distribution Width 15.9 % (11.5-14.5) Platelet Count 209 x10^3/uL (140-400) Neutrophils (%) (Auto) 45 % (31-73) Lymphocytes (%) (Auto) 43 % (24-48) Monocytes (%) (Auto) 10 % (0-9) Eosinophils (%) (Auto) 2 % (0-3) Basophils (%) (Auto) 1 % (0-3) Neutrophils # (Auto) 1.2 x10^3/uL (1.8-7.7) Lymphocytes # (Auto) 1.2 x10^3/uL (1.0-4.8) Monocytes # (Auto) 0.3 x10^3/uL (0.0-1.1) Eosinophils # (Auto) 0.1 x10^3/uL (0.0-0.7) Basophils # (Auto) 0.0 x10^3/uL (0.0-0.2) Sodium Level 140 mmol/L (136-145) Potassium Level 3.6 mmol/L (3.5-5.1) Chloride Level 107 mmol/L (98-107) Carbon Dioxide Level 18 mmol/L (21-32) Anion Gap 15 (6-14) Blood Urea Nitrogen 15 mg/dL (7-20) Creatinine 0.8 mg/dL (0.6-1.0) Estimated GFR (Cockcroft-Gault) 84.6 Glucose Level 74 mg/dL (70-99) Calcium Level 8.1 mg/dL (8.5-10.1) Magnesium Level 1.9 mg/dL (1.8-2.4) Test 07/06/21 11:00 Glucose (Fingerstick) 94 mg/dL (70-99) Assessment and Plan Assessmemt and Plan Problems Medical Problems: (1) Atypical pneumonia Status: Acute (2) COVID-19 virus infection Status: Acute (3) Elevated troponin level not due myocardial infarction Status: Acute (4) Hx of severe congestive heart failure Status: Acute (5) Syncope Status: Acute Comment Review of Relevant I have reviewed the following items marissa (where applicable) has been applied. Medications: Current Medications Medications (Trade) Dose Ordered Sig/Michael Route PRN Reason Start Time Stop Time Status Last Admin Dose Admin Potassium Chloride (Klor-Con) 40 meq 1X ONCE PO 07/05/21 14:00 07/05/21 14:01 DC 07/05/21 18:13 Lactobacillus Rhamnosus (Culturelle) 1 cap BID PO 07/05/21 21:00 07/06/21 09:17 Justifications for Admission Other Justification Syncope BURKE MONAHAN MD Jul 06, 2021 12:30
--- NOTE | 2021-07-06 14:26 | NUR ---
SW following. Discussed with Dr. Harris, chart reviewed. Pt from home with , room air, ada diet, COVID-19 positive. PT/OT recommending home. Cardiology following. No SW needs identified at this time. SW will continue to follow.
[2021-07-06 15:00] VITALS: BP 165/100
[2021-07-06] MEDS: SPIRONOLACTONE 25 MG TABLET PO SCH (15:39)
[2021-07-06] MEDS: cefTRIAXone IV Push 1 GM VIAL. IVP SCH (15:39)
[2021-07-06] MEDS: LISINOPRIL 20 MG TABLET PO SCH (15:40)
[2021-07-06] MEDS: CARVEDILOL 6.25 MG TABLET. PO SCH (18:03)
[2021-07-06 19:00] VITALS: BP 155/82
[2021-07-06] MEDS: ENOXAPARIN 40 MG/0.4 ML SYRINGE. SQ SCH (21:39)
[2021-07-06 23:04] VITALS: BP 143/93
[2021-07-07 03:08] VITALS: BP 136/90
[2021-07-07 07:00] VITALS: BP 99/69
[2021-07-07] MEDS: INSULIN LISPRO 300 UNITS/3 ML VIAL. SQ SCH ×3 (08:00→17:00)
[2021-07-07] MEDS: DOXYCYCLINE HYCLATE 100 MG TABLET PO SCH ×2 (08:06→21:30)
[2021-07-07] MEDS: ZINC SULFATE 220 MG CAPSULE. PO SCH (08:06)
[2021-07-07] MEDS: ASCORBIC ACID 1,000 MG TABLET PO SCH ×3 (08:06→21:29)
[2021-07-07 08:07] LABS: BASO % 1 % (0-3); EOS # 0.1 x10^3/uL (0.0-0.7); EOS % 5 % (0-3); HEMATOCRIT 40.6 % (36.0-47.0); HEMOGLOBIN 13.1 g/dL (12.0-15.5); LYMPH # 1.1 x10^3/uL (1.0-4.8); LYMPH % 37 % (24-48); MEAN CORPUSCULAR HEMOGLOBIN 29 pg (25-35); MEAN CORPUSCULAR HGB CONC 32 g/dL (31-37); MEAN CORPUSCULAR VOLUME 90 fL (79-100); MONO # 0.3 x10^3/uL (0.0-1.1); MONO % 8 % (0-9); NEUT # 1.5 x10^3/uL (1.8-7.7); NEUT % 49 % (31-73); PLATELET COUNT 232 x10^3/uL (140-400); RED BLOOD COUNT 4.52 x10^6/uL (3.50-5.40); RED CELL DISTRIBUTION WIDTH 15.8 % (11.5-14.5); WHITE BLOOD COUNT 3.1 x10^3/uL (4.0-11.0)
[2021-07-07] MEDS: LISINOPRIL 20 MG TABLET PO SCH (08:08)
[2021-07-07] MEDS: SPIRONOLACTONE 25 MG TABLET PO SCH (08:08)
[2021-07-07] MEDS: CARVEDILOL 6.25 MG TABLET. PO SCH ×2 (08:08→17:30)
[2021-07-07] MEDS: PANTOPRAZOLE 40 MG TABLET.DR. PO SCH (08:09)
[2021-07-07] MEDS: LACTOBACILLUS RHAMNOSUS GG 1 CAPSULE. PO SCH ×2 (08:14→21:30)
[2021-07-07] MEDS: THIAMINE 100 MG TABLET. PO SCH (08:28)
[2021-07-07 08:29] LABS: CALCIUM 8.2 mg/dL (8.5-10.1); CREATININE 0.8 mg/dL (0.6-1.0); GFR 84.6; POTASSIUM 3.2 mmol/L (3.5-5.1)
[2021-07-07 08:30] LABS: MAGNESIUM 1.7 mg/dL (1.8-2.4)
[2021-07-07] MEDS ORDERED: POTASSIUM CHLORIDE 20 MEQ TABLET.ER. PO ONE (09:00)
[2021-07-07 11:00] VITALS: BP 111/60
--- NOTE | 2021-07-07 11:06 | PDOC ---
KAREEM NGUYEN BEND SORTER 07/07/21 1106: CARDIO Progress Notes Date and Time Date of Service 07/07/2021 Time of Evaluation 0940 Subjective Subjective: No Chest Pain, No shortness of breath, No Palpitations Vitals Vitals Vital Signs Date Time Temp Pulse Resp B/P (MAP) Pulse Ox O2 Delivery O2 Flow Rate FiO2 07/07/21 08:08 76 99/69 07/07/21 07:00 98.7 20 92 Nasal Cannula 98.7 Weight Weight [ ] Input and Output Intake and Output Intake and Output 07/07/21 07:00 Output Total 400 ml Balance -400 ml Output Urine Total 400 ml # Voids 3 Laboratory Labs Laboratory Tests Test 07/06/21 11:00 07/06/21 17:24 07/06/21 20:54 07/07/21 06:00 Glucose (Fingerstick) 94 mg/dL (70-99) 79 mg/dL (70-99) 123 mg/dL (70-99) White Blood Count 3.1 x10^3/uL (4.0-11.0) Red Blood Count 4.52 x10^6/uL (3.50-5.40) Hemoglobin 13.1 g/dL (12.0-15.5) Hematocrit 40.6 % (36.0-47.0) Mean Corpuscular Volume 90 fL (79-100) Mean Corpuscular Hemoglobin 29 pg (25-35) Mean Corpuscular Hemoglobin Concent 32 g/dL (31-37) Red Cell Distribution Width 15.8 % (11.5-14.5) Platelet Count 232 x10^3/uL (140-400) Neutrophils (%) (Auto) 49 % (31-73) Lymphocytes (%) (Auto) 37 % (24-48) Monocytes (%) (Auto) 8 % (0-9) Eosinophils (%) (Auto) 5 % (0-3) Basophils (%) (Auto) 1 % (0-3) Neutrophils # (Auto) 1.5 x10^3/uL (1.8-7.7) Lymphocytes # (Auto) 1.1 x10^3/uL (1.0-4.8) Monocytes # (Auto) 0.3 x10^3/uL (0.0-1.1) Eosinophils # (Auto) 0.1 x10^3/uL (0.0-0.7) Basophils # (Auto) 0.0 x10^3/uL (0.0-0.2) Sodium Level 140 mmol/L (136-145) Potassium Level 3.2 mmol/L (3.5-5.1) Chloride Level 105 mmol/L (98-107) Carbon Dioxide Level 21 mmol/L (21-32) Anion Gap 14 (6-14) Blood Urea Nitrogen 14 mg/dL (7-20) Creatinine 0.8 mg/dL (0.6-1.0) Estimated GFR (Cockcroft-Gault) 84.6 Glucose Level 77 mg/dL (70-99) Calcium Level 8.2 mg/dL (8.5-10.1) Magnesium Level 1.7 mg/dL (1.8-2.4) Test 07/07/21 07:50 Glucose (Fingerstick) 73 mg/dL (70-99) Microbiology Micro Microbiology 07/04/21 Urine Culture - Final, Complete Physical Exam HEENT: Neck Supple W Full Motion Chest: Symmetric LUNGS: Clear to Auscultation Heart: RRR (SR with LBBB) Abdomen: Soft N/T Extremities: No Edema Neurology: alert, oriented, follow commands Assessment Assessment 1. Syncope; most probably vasovagal in the setting of acute COVID infection, ROMEL. CT head without acute findings. No acute events on telemetry 2. COVID PNA; on RA 3. Leukopenia 4. NICM; recent LHC without any significant CAD, compensated 5. Chronic systolic CHF; LVEF 15% per cath 6. ROMEL; prerenal and resolved 7. Hypertension; controlled 8. Hyperlipidemia. 9. Diabetes, II 10. H/o CVA 11. Chronic LBBB Recommendation Lisinopril, coreg, and aldactone. Will switch to entresto as an outpt. Will convert labetalol to Coreg given severe CMP Holding lasix will resume per PO adequacy Ongoing pulmonary optimization, treatment of COVID Consider for [facility] as an outpt affter 3 mo of optimization, consider for lifevest in the meantime Supportive care Justicifation of Admission Dx: Justifications for Admission: Justification of Admission Dx: Yes [place]: Acute NSTEMI NELSON ETIENNE MD 07/07/21 0783: CARDIO Progress Notes Assessment Assessment Agree with PHYSICS TECHNICAL OFFICER's assessment and plan. Syncope most prob vasovagal Chr systolic HF well compensated Continue current treatment for covid PNA Repeat 2D echo in 3 months after optimizing medical therapy for cardiomyopathy to evaluate need for biventricular ICD implantation KAREEM NGUYEN APRN Jul 07, 2021 11:06 NELSON ETIENNE MD Jul 07, 2021 15:57
[2021-07-07 11:32] LABS: CHOLESTEROL/HDL RATIO 3.1
[2021-07-07] MEDS ORDERED: MAGNESIUM SULFATE 2GM 50 ML IV ONE (12:00)
--- NOTE | 2021-07-07 13:41 | PDOC ---
[facility] PROGRESS NOTE Date of Service DOS: DATE: 07/07/21 TIME: 13:31 Chief Complaint Chief Complaint Vasovagal Syncope, rule out cardiogenic Atypical bilateral pneumonia, possible gram-negative organisms COVID-19 pneumonia Multiple hypodense lesions within the liver, the largest of which demonstrate attenuation consistent with a cyst. In the absence of known malignancy, the additional lesions are also likely cysts. ROMEL due to vasomotor nephropathy Elevated BNP likely due to volume overload History of CHF seen on cardiac cath, estimated LVEF of 15% History of hypertension History of diabetes mellitus type 2 History of gout History of asthma Admit to hospitalist service for further management We will hold off on Covid protocol treatments as patient is not needing any oxygen at this time. Empiric IV antibiotics Pending Legionella antigen urine, pro calcitonin and MRSA screen Orthostatic vital signs Bowel regimen Continue judicious IV fluids Strict I/os Monitor urine output R ISS and Accu-Cheks Cardiology consult Pending TTE Continue telemetry monitoring Fall precautions Hold all centrally acting medications Lovenox for DVT prophylaxis Protonix GI prophylaxis ADA diet CODE STATUS full Discussed with RN and SW Disposition inpatient management as above DPOA: History of Present Illness History of Present Illness 07/07/21 No acute events or night. Patient seen examined bedside. Patient feels better. Blood pressure low normal in 100 over 80s. Cardiology managing goal-directed medical management for her CHF. Continue with empiric IV antibiotics and pending Legionella urine antigen. Plan for discharge tomorrow. Orthostatic vital signs today. Patient's chart, labs, images were reviewed and discussed with RN 07/06/2021 No acute events overnight. Patient seen examined bedside. Pending cardiology evaluation for medical management of her CHF medications. Anticipate discharge in the next 24 to 48 hours. Patient's chart, labs, images were reviewed and discussed with RN 07/05 Patient evaluated examined at bedside. Resting in bed pleasant. Was eating lunch. Continue pneumonia treatment. Cards consult for syncope. PT OT. Vitals/I&O Vitals/I&O: Vital Signs Date Time Temp Pulse Resp B/P (MAP) Pulse Ox O2 Delivery O2 Flow Rate FiO2 07/07/21 11:00 98.7 76 20 111/60 (77) 97 Nasal Cannula 98.7 I & O 07/06/21 07/06/21 07/07/21 15:00 23:00 07:00 Output Total 400 ml Balance -400 ml Physical Exam General: Alert, Oriented X3, Cooperative Heart: Regular rate, Normal S1, Normal S2 Lungs: Other (Decreased throughout) Abdomen: Normal bowel sounds, Soft, No tenderness Extremities: Normal pulses, Other (Lower extremity edema) Skin: No significant lesion Labs Labs: Laboratory Tests Test 07/06/21 17:24 07/06/21 20:54 07/07/21 06:00 07/07/21 07:50 Glucose (Fingerstick) 79 mg/dL (70-99) 123 mg/dL (70-99) 73 mg/dL (70-99) White Blood Count 3.1 x10^3/uL (4.0-11.0) Red Blood Count 4.52 x10^6/uL (3.50-5.40) Hemoglobin 13.1 g/dL (12.0-15.5) Hematocrit 40.6 % (36.0-47.0) Mean Corpuscular Volume 90 fL (79-100) Mean Corpuscular Hemoglobin 29 pg (25-35) Mean Corpuscular Hemoglobin Concent 32 g/dL (31-37) Red Cell Distribution Width 15.8 % (11.5-14.5) Platelet Count 232 x10^3/uL (140-400) Neutrophils (%) (Auto) 49 % (31-73) Lymphocytes (%) (Auto) 37 % (24-48) Monocytes (%) (Auto) 8 % (0-9) Eosinophils (%) (Auto) 5 % (0-3) Basophils (%) (Auto) 1 % (0-3) Neutrophils # (Auto) 1.5 x10^3/uL (1.8-7.7) Lymphocytes # (Auto) 1.1 x10^3/uL (1.0-4.8) Monocytes # (Auto) 0.3 x10^3/uL (0.0-1.1) Eosinophils # (Auto) 0.1 x10^3/uL (0.0-0.7) Basophils # (Auto) 0.0 x10^3/uL (0.0-0.2) Sodium Level 140 mmol/L (136-145) Potassium Level 3.2 mmol/L (3.5-5.1) Chloride Level 105 mmol/L (98-107) Carbon Dioxide Level 21 mmol/L (21-32) Anion Gap 14 (6-14) Blood Urea Nitrogen 14 mg/dL (7-20) Creatinine 0.8 mg/dL (0.6-1.0) Estimated GFR (Cockcroft-Gault) 84.6 Glucose Level 77 mg/dL (70-99) Calcium Level 8.2 mg/dL (8.5-10.1) Magnesium Level 1.7 mg/dL (1.8-2.4) Triglycerides Level 113 mg/dL (0-150) Cholesterol Level 103 mg/dL (0-200) LDL Cholesterol, Calculated 47 mg/dL (0-100) VLDL Cholesterol, Calculated 23 mg/dL (0-40) Non-HDL Cholesterol Calculated 70 mg/dL (0-129) HDL Cholesterol 33 mg/dL (40-60) Cholesterol/HDL Ratio 3.1 Test 07/07/21 11:15 Glucose (Fingerstick) 120 mg/dL (70-99) Assessment and Plan Assessmemt and Plan Problems Medical Problems: (1) Atypical pneumonia Status: Acute (2) COVID-19 virus infection Status: Acute (3) Elevated troponin level not due myocardial infarction Status: Acute (4) Hx of severe congestive heart failure Status: Acute (5) Syncope Status: Acute Comment Review of Relevant I have reviewed the following items marissa (where applicable) has been applied. Medications: Current Medications Medications (Trade) Dose Ordered Sig/Michael Route PRN Reason Start Time Stop Time Status Last Admin Dose Admin Lisinopril (Prinivil) 20 mg DAILY PO 07/06/21 15:00 07/07/21 08:08 Carvedilol (Coreg) 6.25 mg BIDWMEALS PO 07/06/21 17:00 07/07/21 08:08 Spironolactone (Aldactone) 25 mg DAILY PO 07/06/21 15:00 07/07/21 08:08 Potassium Chloride (Klor-Con) 40 meq 1X ONCE PO 07/07/21 09:00 07/07/21 09:01 DC 07/07/21 10:39 Magnesium Sulfate 50 ml @ 25 mls/hr 1X ONCE IV 07/07/21 12:00 07/07/21 13:59 07/07/21 11:42 Justifications for Admission Other Justification Syncope BURKE MONAHAN MD Jul 07, 2021 13:41
[2021-07-07 15:00] VITALS: BP 140/78
[2021-07-07] MEDS: cefTRIAXone IV Push 1 GM VIAL. IVP SCH (17:30)
[2021-07-07 19:00] VITALS: BP 123/72
[2021-07-07] MEDS: ENOXAPARIN 40 MG/0.4 ML SYRINGE. SQ SCH (21:30)
[2021-07-07 23:00] VITALS: BP 152/80
[2021-07-08 07:00] VITALS: BP 133/63
[2021-07-08] MEDS: INSULIN LISPRO 300 UNITS/3 ML VIAL. SQ SCH ×3 (07:58→17:00)
[2021-07-08] MEDS: ASCORBIC ACID 1,000 MG TABLET PO SCH ×2 (08:15→14:57)
[2021-07-08] MEDS: THIAMINE 100 MG TABLET. PO SCH (08:16)
[2021-07-08] MEDS: PANTOPRAZOLE 40 MG TABLET.DR. PO SCH (08:16)
[2021-07-08] MEDS: DOXYCYCLINE HYCLATE 100 MG TABLET PO SCH (08:16)
[2021-07-08] MEDS: LACTOBACILLUS RHAMNOSUS GG 1 CAPSULE. PO SCH (08:16)
[2021-07-08] MEDS: SPIRONOLACTONE 25 MG TABLET PO SCH (08:16)
[2021-07-08] MEDS: LISINOPRIL 20 MG TABLET PO SCH (08:17)
[2021-07-08] MEDS: CARVEDILOL 6.25 MG TABLET. PO SCH ×2 (08:22→17:00)
[2021-07-08] MEDS: ZINC SULFATE 220 MG CAPSULE. PO SCH (08:23)
[2021-07-08] MEDS ORDERED: DOXY100T PO (10:52)
[2021-07-08] MEDS ORDERED: PANT40TA77 PO (10:52)
[2021-07-08] MEDS ORDERED: ALBU8HFA INH (10:52)
[2021-07-08] MEDS ORDERED: SPIR25TA PO (10:52)
[2021-07-08] MEDS ORDERED: AMOX1TAB58 PO (10:52)
[2021-07-08] MEDS ORDERED: CARV6.2511 PO (10:52)
--- NOTE | 2021-07-08 10:53 | SNU/HH DC ---
DISCHARGE WITH HOME HEALTH DISCHARGE INFORMATION: Final Diagnosis: Problems Medical Problems: (1) Atypical pneumonia Status: Acute (2) COVID-19 virus infection Status: Acute (3) Elevated troponin level not due myocardial infarction Status: Acute (4) Hx of severe congestive heart failure Status: Acute (5) Syncope Status: Acute Condition on Discharge: Stable CODE STATUS: Code Status: Full HOME HEALTH: Face to Face: I certify this patient is under my care and that I, or a nurse practitioner or physician's legal support assistant working with me, had a face to face encounter that meets the physician face to face encounter requirements with this patient on []. Medical Complications: Other (Recent Covid) Longterm For: Assess Cardiopulm Status RN For Eval/Treatment: Yes Physical Therapy For: Evalulation/Treatment Occupational Therapy For: Evaluation/Treatment Home Health Aide For: Self-care VALIDATION SOFTWARE FACILITATOR For: Community Resources Pt Meets Homebound Status: Poor coordination w/ amb. POST DISCHARGE ORDERS: Activity Instructions for Disc: Activity as tolerated Weight Bearing Status after Di: Full weight bearing Bathing Instructions: No Tub Bath until see DIET AFTER DISCHARGE: Cardiac Wound/Incision Care: Ice to area for comfort, Change dressing, May get incision wet TREATMENT/EQUIPMENT ORDERS: Adaptive Equipment Issued: None CERTIFICATION STATEMENT: Certification Statement: Certification Statement: Based on the above finding, I certify that this patient is confined to the home and needs intermittent [facility] care, physical therapy and/or speech therapy, or continues to need occupational therapy.~ This patient is under my care, and I have initiated the establishment of the plan of care.~ This patient will be followed by myself or a community physician who will periodically review the plan of care. Home Meds Active Scripts Amoxicillin/Potassium Clav (AUGMENTIN 500-125 TABLET) 1 Each Tablet, 1 TAB PO BID for . for 7 Days, #14 TAB 0 Refills Prov:CASTLE,NIAL K III DO 07/08/21 Pantoprazole Sodium (PANTOPRAZOLE SODIUM ) 40 Mg Tablet.dr, 40 MG PO DAILYAC for . for 30 Days, #30 TAB.SR Prov:CASTLE,NIAL K III DO 07/08/21 Spironolactone (ALDACTONE) 25 Mg Tablet, 25 MG PO DAILY for . for 30 Days, #30 TAB Prov:CASTLE,NIAL K III DO 07/08/21 Carvedilol (CARVEDILOL ) 6.25 Mg Tablet, 6.25 MG PO BIDWMEALS for . for 30 Days, #60 TAB Prov:JEREMIAH EDWARDSL K III DO 07/08/21 Albuterol Sulfate (Ventolin Hfa) 8 Gm Hfa.aer.ad, 1 PUFF INH PRN Q4HRS PRN for SHORTNESS OF BREATH for 10 Days, #1 INHALER Prov:JEREMIAH EDWARDSL K III DO 07/08/21 Doxycycline Hyclate (DOXYCYCLINE HYCLATE) 100 Mg Tablet, 100 MG PO BID for . for 7 Days, #14 TAB Prov:JEREMIAH EDWARDSL K III DO 07/08/21 Lisinopril (LISINOPRIL) 40 Mg Tablet, 40 MG PO DAILY for FOR HYPERTENSION for 30 Days, #30 TAB 0 Refills Prov:BURKE MONAHAN MD 06/01/21 Aspirin (ASPIRIN) 81 Mg Tab.chew, 1 TAB PO DAILY for heart for 30 Days, #30 TAB 3 Refills Prov:BURKE MONAHAN MD 06/01/21 Atorvastatin Calcium (ATORVASTATIN CALCIUM) 10 Mg Tablet, 10 MG PO HS for FOR CHOLESTEROL for 30 Days, #30 TAB 2 Refills Prov:BURKE MONAHAN MD 06/01/21 Reported Medications Furosemide (LASIX) 40 Mg Tablet, 1 TAB PO DAILY for chf for 30 Days, #30 TAB 0 Refills 06/01/21 Potassium Chloride (KLOR-CON 10) 10 Meq Tablet.er, 1 TAB PO DAILY for lasix for 30 Days, #30 TAB 0 Refills 06/01/21 Indomethacin (INDOMETHACIN) 50 Mg Capsule, 50 MG PO BIDAFTMEAL PRN PRN for PAIN, CAP 06/01/21 Allopurinol (ALLOPURINOL) 300 Mg Tablet, 300 MG PO DAILY for gout, TAB 06/01/21 Discontinued Scripts Labetalol Hcl (LABETALOL HCL) 200 Mg Tablet, 1 TAB PO BID for blood pressure for 30 Days, #60 TAB 5 Refills Prov:BURKE MONAHAN MD 06/01/21 JEREMIAH EDWARDSL K III DO Jul 08, 2021 10:53
[2021-07-08 11:00] VITALS: BP 123/77
--- NOTE | 2021-07-08 12:04 | DS ---
DATE OF DISCHARGE: 07/08/2021 ADMISSION DIAGNOSES: COVID-19 pneumonia and syncope, history of nonischemic cardiomyopathy with recent cardiac catheterization, history of stroke. DISCHARGE DIAGNOSES: Resolving COVID-19 pneumonia, resolving vasovagal syncope, resolving pneumonia, history of congestive heart failure, hypertension, hyperlipidemia, diabetes, gout, asthma. CONSULTS: Cardiology. PROCEDURE: None. HOSPITAL COURSE: The patient is a pleasant, middle-aged female who presented with syncopal episode and was noted also be COVID-19 positive. She was admitted. We gave her COVID protocol. We consulted Cardiology. Today, I saw and examined her. She is at her baseline and wants to go home. We plan to discharge with home health. DISPOSITION: Home with home health. ACTIVITY: As tolerated. DIET: Low sodium. DISCHARGE MEDICATIONS: Please see the MRAD. Albuterol, Augmentin, carvedilol 6.25 b.i.d., doxycycline 100 p.o. b.i.d., Protonix 40 a day, Aldactone 25 a day, allopurinol 300 a day, aspirin 81 a day, atorvastatin 10 a day, Lasix 40 a day, indomethacin 50 b.i.d., lisinopril 40 a day, potassium 10 a day. TOTAL TIME: [address]: ALFONSO/cal TID: [id number]
[2021-07-08 15:00] VITALS: BP 147/76
--- NOTE | 2021-07-08 15:27 | PDOC ---
PROGRESS NOTES Date of Service: DATE: 07/08/21 TIME: 15:26 Subjective Subjective No new complaints Objective Objective Vital Signs Date Time Temp Pulse Resp B/P (MAP) Pulse Ox O2 Delivery O2 Flow Rate FiO2 07/08/21 11:00 98.0 77 24 123/77 (92) 94 Room Air 98.0 Intake and Output 07/08/21 07:00 Intake Total 120 ml Output Total 550 ml Balance -430 ml Intake Oral 120 ml Output Urine Total 550 ml # Voids 2 Physical Exam Abdomen: Normal bowel sounds, Soft, No tenderness Heart: Regular rate, Normal S1, Normal S2 Extremities: Normal pulses, Other (Lower extremity edema) General: Alert, Oriented X3, Cooperative Skin: No significant lesion Assessment Assessment 1. Syncope; most probably vasovagal in the setting of acute COVID infection, ROMEL. CT head without acute findings. No acute events on telemetry 2. COVID PNA; on RA 3. Leukopenia 4. NICM; recent LHC without any significant CAD, compensated 5. Chronic systolic CHF; LVEF 15% per cath 6. ROMEL; prerenal and resolved 7. Hypertension; controlled 8. Hyperlipidemia. 9. Diabetes, II 10. H/o CVA 11. Chronic LBBB Recommendation Lisinopril, coreg, and aldactone. Will switch to entresto as an outpt. Continue current medical regimen Ongoing pulmonary optimization, treatment of COVID Consider for [employer]-D Plan Plan of Care Problems Medical Problems: (1) Atypical pneumonia Status: Acute (2) COVID-19 virus infection Status: Acute (3) Elevated troponin level not due myocardial infarction Status: Acute (4) Hx of severe congestive heart failure Status: Acute (5) Syncope Status: Acute Comment Review of Relevant I have reviewed the following items marissa (where applicable) has been applied. Labs Laboratory Tests Test 07/07/21 16:08 07/08/21 07:47 07/08/21 11:14 Glucose (Fingerstick) 111 mg/dL (70-99) 106 mg/dL (70-99) 109 mg/dL (70-99) Microbiology 07/04/21 Urine Culture - Final, Complete Vitals/I & O Vital Sign - Last 24 Hours 07/07/21 07/07/21 07/07/21 07/07/21 17:30 19:00 20:00 23:00 Temp 98.1 98.0 98.1 98.0 Pulse 98 84 79 Resp 20 18 B/P (MAP) 140/78 123/72 (89) 152/80 (104) Pulse Ox 94 94 O2 Delivery Room Air Room Air Room Air 07/08/21 07/08/21 07/08/21 07/08/21 07:00 08:00 08:00 08:17 Temp 97.9 97.9 Pulse 71 71 Resp 24 B/P (MAP) 133/63 (86) 133/63 Pulse Ox 95 O2 Delivery Room Air Room Air Room Air 07/08/21 07/08/21 08:22 11:00 Temp 98.0 98.0 Pulse 71 77 Resp 24 B/P (MAP) 133/63 123/77 (92) Pulse Ox 94 O2 Delivery Room Air Intake and Output 07/07/21 07/07/21 07/08/21 15:00 23:00 07:00 Intake Total 120 ml Output Total 550 ml Balance -550 ml 120 ml NELSON ETIENNE MD Jul 08, 2021 15:26
[2021-07-08] MEDS: cefTRIAXone IV Push 1 GM VIAL. IVP SCH (15:46)
[2021-07-08 17:00] VITALS: BP 133/63
--- NOTE | 2021-07-08 17:47 | NUR ---
patient being discharged, dinner time dose of coreg not given
--- NOTE | 2021-07-08 19:03 | NUR ---
Patient discharged via wheelchair with discharge paperwork and all personal belongings to via ER entrance.
== END 2021-07-08 19:06 | disposition home health service (06) | DRG 177 ==
LOC: ER 09:17 → 5 SOUTH 14:22 → ED HOLD 14:22 → 5 SOUTH 07-05 12:31
PROVIDERS: ADMIT Internal Medicine; ATTEND Internal Medicine
DX: U07.1 COVID-19 (principal); J12.82 Pneumonia due to coronavirus disease 2019; N17.0 Acute kidney failure with tubular necrosis; I31.3 Pericardial effusion (noninflammatory); I42.8 Other cardiomyopathies; I50.22 Chronic systolic (congestive) heart failure; D72.819 Decreased white blood cell count, unspecified; E11.9 Type 2 diabetes mellitus without complications; E78.5 Hyperlipidemia, unspecified; I11.0 Hypertensive heart disease with heart failure; I25.10 Atherosclerotic heart disease of native coronary artery without angina pectoris; I44.7 Left bundle-branch block, unspecified; J43.9 Emphysema, unspecified; J45.909 Unspecified asthma, uncomplicated; K44.9 Diaphragmatic hernia without obstruction or gangrene; K57.30 Diverticulosis of large intestine without perforation or abscess without bleeding; K59.00 Constipation, unspecified; K76.89 Other specified diseases of liver; N28.1 Cyst of kidney, acquired; Z86.73 Personal history of transient ischemic attack (TIA), and cerebral infarction without residual deficits; Z87.891 Personal history of nicotine dependence; Z90.710 Acquired absence of both cervix and uterus; K59.09 Other constipation; M10.9 Gout, unspecified; R55 Syncope and collapse
CPT/HCPCS: 36415; 70450; 71045; 74176; 80048; 80053; 80061; 81001; 82274; 82962; 83735; 83880; 84100; 84145; 84484; 85025; 85379; 86140; 87086; 87426; 87449; 87641; 93005; 96360; 96361; J0696; J1650; J3475; J7030; 97530-GO; 97530-GP; 99285-25; G0378; Q0163